=== PATIENT | male | born 1935 | race Caucasian/White ===

== ENCOUNTER 2019-05-22 13:05 | Emergency (ER) | payer MEDICARE ==
[~2019-05-22] VITALS: Ht 182.9 cm; Wt 99.8 kg
[~2019-05-22 13:05] MED LIST: ASPI81CH PO; ASPI81EC PO; BETA1 PO; BILBERRY PO; CALCA500CH PO; CALCIUM PO; CHOL10002 PO; CLON2; CLON2 PO; CLOP75 PO; CYAN1000 PO; DIVA250EC PO; DOC250 PO; DOCCAL240 PO; EYE MULTIVITAMIN PO; FISH OIL 1,0001 EACH PO; FISH1000 PO; Fludrocortison0.1 MG PO; GABA300 PO; HYDACE10B PO; HYDACE5 PO; HYDR1TAB94 PO; LUBRICANT EYE15 ML BOTHEYES; MELA3 PO; METCAR500 PO; METCAR750 PO; MIDO5 PO; MORP15ER; NAPR250 PO; NAPR500 PO; OMEP20ER PO; Refresh Celluv1 EACH OP; SENN187 PO; SERT100 PO; SERT50 PO; TAMS.4ER PO; TUMS500 MG PO; Vitamin D2000 UNIT PO; [UNRECOGNIZED DRUG - OTHER] PO
[2019-05-22] MEDS ORDERED: CYCL10 PO (13:17)
== END 2019-05-22 15:20 | disposition home or self-care (01) ==
LOC: ER 13:05
DX: R51 Headache (principal); M54.2 Cervicalgia; Z88.8 Allergy status to other drugs, medicaments and biological substances; Z79.899 Other long term (current) drug therapy; I50.9 Heart failure, unspecified; Z86.73 Personal history of transient ischemic attack (TIA), and cerebral infarction without residual deficits; F43.10 Post-traumatic stress disorder, unspecified; F32.9 Major depressive disorder, single episode, unspecified; F41.9 Anxiety disorder, unspecified; Z87.891 Personal history of nicotine dependence
CPT/HCPCS: 70450; 99284-25

== ENCOUNTER 2020-10-17 14:01 | Emergency (ER) | payer OTHER ==
[~2020-10-17] VITALS: Ht 182.9 cm; Wt 97.5 kg
[~2020-10-17 14:01] MED LIST changes: +CYCL10 PO
[2020-10-17] MEDS ORDERED: CLIN150 PO (14:51)
== END 2020-10-17 15:21 | disposition home or self-care (01) ==
LOC: ER 14:01
DX: K13.0 Diseases of lips (principal); I50.9 Heart failure, unspecified; Z23 Encounter for immunization; Z79.899 Other long term (current) drug therapy; Z88.8 Allergy status to other drugs, medicaments and biological substances; Z86.73 Personal history of transient ischemic attack (TIA), and cerebral infarction without residual deficits; Z87.891 Personal history of nicotine dependence
CPT/HCPCS: 10060; 90471; 90714; 99283-25; A9270

== ENCOUNTER 2021-01-09 18:43 | Inpatient (IN) | payer OTHER ==
[~2021-01-09] VITALS: Ht 177.8 cm; Wt 93.4 kg
[~2021-01-09 18:43] MED LIST changes: +CLIN150 PO
[2021-01-09 18:58] LABS: BASOPHILS ABSOLUTE AUTO 0.04 K/mm3 (0.00-0.23); BASOPHILS PERCENT AUTO 1 % (0-2); EOSINOPHILS PERCENT AUTO 2 % (0-6); Hematocrit 43.1 % (37.0-53.0); Hemoglobin 14.1 g/dL (13.5-17.5); IMMATURE GRAN ABSOLUTE AUTO 0.01 K/mm3 (0.00-0.10); IMMATURE GRAN PERCENT AUTO 0 % (0-1); LYMPHOCYTES ABSOLUTE AUTO 1.08 K/mm3 (0.84-5.20); LYMPHOCYTES PERCENT AUTO 17 % (21-46); MONOCYTES ABSOLUTE AUTO 0.67 K/mm3 (0.16-1.47); MONOCYTES PERCENT AUTO 10 % (4-13); Mean Corpuscular HGB 30.5 pg (26.0-34.0); Mean Corpuscular HGB Conc 32.7 g/dL (31.5-36.5); Mean Corpuscular Volume 93 fL (80-100); Mean Platelet Volume 11.1 fL (9.1-12.4); NEUTROPHILS PERCENT AUTO 71 % (41-73); Platelet Count 168 K/mm3 (150-400); RDW Coefficient Variation 13.1 % (11.7-14.2); Red Blood Cell Count 4.63 M/mm3 (4.30-5.90)
[2021-01-09 19:21] LABS: Alanine Aminotransfer (ALT/SGP 22 U/L (12-78); Albumin, Blood 4.4 g/dL (3.4-5.0); Alk Phos 72 U/L (50-136); Anion Gap 4 mmol/L (6-16); Aspartate Aminotrans (AST/SGOT 17 U/L (12-37); Bilirubin, Total 0.6 mg/dL (0.1-1.0); Blood Urea Nitrogen 12 mg/dL (8-24); Bun/Creatinine Ratio 9.7 (12.0-20.0); CO2, Blood 27 mmol/L (21-32); Calcium, Blood 9.3 mg/dL (8.5-10.1); Chloride, Blood 106 mmol/L (98-108); Creatinine, Blood 1.24 mg/dL (0.60-1.20); Globulin, Blood 4.3 g/dL (2.2-4.0); Glomerular Filtration Rate 59 (60-); Glucose, Blood 107 mg/dL (70-99); Potassium, Blood 3.9 mmol/L (3.5-5.5); Sodium, Blood 137 mmol/L (136-145); Total Protein, Blood 8.7 g/dL (6.4-8.2); Troponin I <0.015 ng/mL (0.000-0.040)
[2021-01-09 21:54] LABS: International Normalized Ratio 1.06; Prothrombin Time Results 11.4 Sec (9.7-11.5)
--- NOTE | 2021-01-10 | NUR ---
ASSUMED CARE PT ARRIVED 0 AND IS ALERT AND ORIENTED. PT HAS GARBLED SPEECH. RIGHT ARM/LEG NUMBNESS AND WEAKNESS. NO FACE DROOP. HEPARIN INFUSING AT TIME. CALL LIGHT PLACED AT LEFT SIDE. WILL CONTINUE TO MONITOR.
--- NOTE | 2021-01-10 05:19 | NUR ---
SHIFT SUMMARY PT ARRIVED AT APPROX 2350. HE IS ALERT. DENIES CHEST PAIN OR SOB. PT HAS RIGHT SIDED WEAKNES. RIGHT ARM IS NUMB WITH WEAK WASHCLOTH FOLDER. RIGHT LEG IS WEAK AND NUMB. NO FACIAL DROOP, NO TONGUE DEVIATION. WHEN ASKED IF PT KNEW WHERE HE WAS HE DENIED KNOWING. PT'S SPEECH HAS BECOME MORE GARBLED AND UNABLE TO UNDERSTAND. PT'S WHILE PT WAS IN THE ER. ED NURSE STATED THAT PT'S FAMILY WILL BE FLYING IN FROM [place] TO ARRANGE FURTHER CARE FOR PATIENT.
[2021-01-10 06:42] LABS: BASOPHILS ABSOLUTE AUTO 0.03 K/mm3 (0.00-0.23); BASOPHILS PERCENT AUTO 1 % (0-2); EOSINOPHILS ABSOLUTE AUTO 0.12 K/mm3 (0.00-0.68); EOSINOPHILS PERCENT AUTO 2 % (0-6); Hematocrit 35.7 % (37.0-53.0); Hemoglobin 12.1 g/dL (13.5-17.5); IMMATURE GRAN ABSOLUTE AUTO 0.01 K/mm3 (0.00-0.10); IMMATURE GRAN PERCENT AUTO 0 % (0-1); LYMPHOCYTES ABSOLUTE AUTO 0.91 K/mm3 (0.84-5.20); LYMPHOCYTES PERCENT AUTO 18 % (21-46); MONOCYTES ABSOLUTE AUTO 0.48 K/mm3 (0.16-1.47); MONOCYTES PERCENT AUTO 9 % (4-13); Mean Corpuscular HGB 30.9 pg (26.0-34.0); Mean Corpuscular HGB Conc 33.9 g/dL (31.5-36.5); Mean Corpuscular Volume 91 fL (80-100); Mean Platelet Volume 11.4 fL (9.1-12.4); NEUTROPHILS ABSOLUTE AUTO 3.54 K/mm3 (1.96-9.15); NEUTROPHILS PERCENT AUTO 70 % (41-73); Platelet Count 155 K/mm3 (150-400); RDW Coefficient Variation 13.2 % (11.7-14.2); RDW Standard Deviation 42.5 fL (35.1-46.3); Red Blood Cell Count 3.91 M/mm3 (4.30-5.90); White Blood Cell Count 5.09 K/mm3 (4.00-11.30)
[2021-01-10 07:06] LABS: Alanine Aminotransfer (ALT/SGP 16 U/L (12-78); Albumin, Blood 3.4 g/dL (3.4-5.0); Albumin/Globulin Ratio 1.1 (0.8-1.8); Alk Phos 52 U/L (50-136); Anion Gap 6 mmol/L (6-16); Aspartate Aminotrans (AST/SGOT 12 U/L (12-37); Bilirubin, Total 0.7 mg/dL (0.1-1.0); Blood Urea Nitrogen 10 mg/dL (8-24); Bun/Creatinine Ratio 11.3 (12.0-20.0); CO2, Blood 26 mmol/L (21-32); Calcium, Blood 8.1 mg/dL (8.5-10.1); Chloride, Blood 106 mmol/L (98-108); Creatinine, Blood 0.88 mg/dL (0.60-1.20); Globulin, Blood 3.2 g/dL (2.2-4.0); Glomerular Filtration Rate >60 (60-); Glucose, Blood 92 mg/dL (70-99); Potassium, Blood 3.7 mmol/L (3.5-5.5); Sodium, Blood 138 mmol/L (136-145); Total Protein, Blood 6.6 g/dL (6.4-8.2)
--- NOTE | 2021-01-10 07:12 | NUR ---
HOLD HEPARIN FOR 1 HOUR PER PHARMACY NOW AT 0711.
--- NOTE | 2021-01-10 08:09 | NUR ---
RESTARTED HEPARIN AT 11 UNITS/KG/HR AND 20.7 ML/HR AFTER HOLDING FOR 1 HOUR PER PHARMACY.
--- NOTE | 2021-01-10 12:16 | NUR ---
pt is service connected requested his advance directive from [facility]
[2021-01-10 13:16] LABS: Source, Urine Clean Catch
[2021-01-10 13:20] LABS: Appearance, Urine Clear (Clear); Bilirubin, Urine Neg (Neg); Blood, Urine 1+ (Neg); Color, Urine Yellow (P-Yellow); Glucose Qualitative, Urine Neg (Neg); Ketones, Urine 3+ (Neg); Leukocyte Esterase, Urine Neg (Neg); Nitrite, Urine Pos (Neg); Protein, Urine 2+ (Neg); Urobilinogen, Urine 1+ (Normal)
[2021-01-10 13:33] LABS: Bacteria Mod /hpf; Calcium Oxalate Crystals Rare /hpf; Red Blood Cells, Urine Rare /hpf (0-2); Squamous Epithelial Cells Not Seen /hpf (Few); White Blood Cells, Urine 0-2 /hpf (0-5)
--- NOTE | 2021-01-10 18:14 | NUR ---
SHIFT SUMMARY PT ALERT THROUGHOUT SHIFT. ORIENTED TO PERSON, PLACE, AND EVENT. RIGHT SIDED WEAKNESS IMPROVED THROUGOUT SHIFT. TWO GRANDCHILDREN VISITED FROM [place]. HEPARIN DRIP RUNNING. WORKED WITH PHYSICAL THERAPY TODAY AND DANGLED AT EDGE OF BED. TOLERATING SIPS OF WATER. CONTINENT OF URINE. MEDICAL STATUS.
--- NOTE | 2021-01-10 22:34 | NUR ---
PATIENT AWAKE AND REPOSITIONING SELF IN BED FOR COMFORT. PATIENT MOVING RIGHT ARM AND LEG, WITH FINE MOTOR SKILLS IN RIGHT HAND DIFFICULTY. SPEECH CONTINUES TO BE SLURRED, BUT PATIENT A&O X3, VERBALIZED THAT HE IS LOOKING FORWARD TO MOVING BACK TO [place] TO BE CLOSER TO 2 OF HIS SONS. TALKING OPENLY ABOUT LOOSING HIS WHO .
--- NOTE | 2021-01-11 00:18 | NUR ---
PATIENT SLEEPING WITH CPAP IN PLACE. AWAKENS TO VERBAL STIMULI, FOLLOWING SIMPLE DIRECTIONS, BUT NOT ANSWERING QUESTIONS. RIGHT ARM AND LEG CONTINUE WITH GROSSE MOVEMENT BUT NO FINE MOTOR SKILLS. WHEN SPEAKING SPEECH VERY DIFFICULT TO UNDERSTAND, NODING YES AND NO TO QUESTIONS.
[2021-01-11 04:11] LABS: BASOPHILS ABSOLUTE AUTO 0.03 K/mm3 (0.00-0.23); BASOPHILS PERCENT AUTO 1 % (0-2); EOSINOPHILS ABSOLUTE AUTO 0.09 K/mm3 (0.00-0.68); EOSINOPHILS PERCENT AUTO 2 % (0-6); Hematocrit 36.3 % (37.0-53.0); Hemoglobin 12.2 g/dL (13.5-17.5); IMMATURE GRAN ABSOLUTE AUTO 0.01 K/mm3 (0.00-0.10); IMMATURE GRAN PERCENT AUTO 0 % (0-1); LYMPHOCYTES ABSOLUTE AUTO 0.95 K/mm3 (0.84-5.20); LYMPHOCYTES PERCENT AUTO 18 % (21-46); MONOCYTES ABSOLUTE AUTO 0.51 K/mm3 (0.16-1.47); MONOCYTES PERCENT AUTO 10 % (4-13); Mean Corpuscular HGB 30.3 pg (26.0-34.0); Mean Corpuscular HGB Conc 33.6 g/dL (31.5-36.5); Mean Corpuscular Volume 90 fL (80-100); Mean Platelet Volume 11.2 fL (9.1-12.4); NEUTROPHILS ABSOLUTE AUTO 3.63 K/mm3 (1.96-9.15); NEUTROPHILS PERCENT AUTO 70 % (41-73); Platelet Count 156 K/mm3 (150-400); RDW Coefficient Variation 12.8 % (11.7-14.2); RDW Standard Deviation 41.2 fL (35.1-46.3); Red Blood Cell Count 4.02 M/mm3 (4.30-5.90); White Blood Cell Count 5.22 K/mm3 (4.00-11.30)
[2021-01-11 04:31] LABS: Albumin, Blood 3.5 g/dL (3.4-5.0); Anion Gap 8 mmol/L (6-16); Blood Urea Nitrogen 9 mg/dL (8-24); Bun/Creatinine Ratio 10.9 (12.0-20.0); CO2, Blood 25 mmol/L (21-32); Calcium, Blood 8.3 mg/dL (8.5-10.1); Chloride, Blood 105 mmol/L (98-108); Creatinine, Blood 0.83 mg/dL (0.60-1.20); Glomerular Filtration Rate >60 (60-); Glucose, Blood 77 mg/dL (70-99); Phosphorus, Blood 2.5 mg/dL (2.5-4.9); Potassium, Blood 3.8 mmol/L (3.5-5.5); Sodium, Blood 138 mmol/L (136-145)
--- NOTE | 2021-01-11 05:43 | NUR ---
SUMMARY PATIENT SLEEPING OFF AND ON T/O NIGHT. AT MIDNIGHT PATIENT HAD DIFFICULTY WAKING AND SPEECH WAS VERY GARBLED. AT 0400 PATIENT AWAKE AND BACK TO EASY TO UNDERSTAND VOICE, DESPITE SLIGHT SLURRED SPEECH. GROSS MOVEMENT TO RIGHT ARM AND LEG, CONTINUES TO NOT HAVE FINE MOTOR SKILLS, ASSISTING WITH REPOSITIONING IN BED. PATIENT VERBALIZED MISSING HIS , AND THAT HE IS LOOKING FORWARD TO MOVING BACK TO [place] WITH HIS OTHER 2 SONS.
--- NOTE | 2021-01-11 09:25 | NUR ---
AM NOTE ASSUMED CARE OF PATIENT AT APPROX 0700. PT RESTING IN BED. REPOSITIONS Q2. PT A&Ox4; CALM AND COOPERATIVE WITH CARE. RIGHT SIDED WEAKNESS NOTED, MINIMAL FINE MOTOR RESPONSE NOTED, ABLE TO TOUCH HIS FACE NEAR HIS NOSE WHEN ASKED TO TOUCH HIS NOSE; DELAYED CELLOPHANER NOTED. PT DENEIS DOUBLE OR BLURRED VISION OR OTHER VISION IMPAIRMENT, HOWEVER, PT UNABLE TO SEE THE TRASH CAN AT THE END OF THE BED. PER TELE HR AFIB IN 70'S, BP ELEVATED BUT STABLE. BS NORMORACTIVE x4 QUAD. ORAL CARE COMPLETED WITH SUCTIONS SET UP. SPEECH THERAPY AT BEDSIDE. OTHER VSS. NO OTHER ACUTE CHAGNES. WILL CONTINUE TO MONITOR.
--- NOTE | 2021-01-11 11:36 | NUR ---
NOTIFIED DR HIGHTOWER OF ORTHSTATIC VS; UNABLE TO STAND LONG ENOUGH TO COMPLETED FULL SET. NO NEW ORDERS AT THIS TIME.
--- NOTE | 2021-01-11 15:07 | NUR ---
Pt resting in bed upon arrival. Offered therapeutic listening as Pt moarns the loss of his . Pt reports frustration and states "I was supposed to be the first to go". Continued therapeutic listening and answered questions. Offered condolences and validated concerns. Discussed his wishes for life sustaining treatment with Pt reporting that he does not want CPR or intubation. Pt would like to be a DNR. Pt is A&O and this RN is confident in Pt's level of understanding. Pt is agreeable for this RN to call his son Saman and relay his wishes. No other concerns reported at this time. Spoke with Primary RN Serenity and discussed case. Called and spoke with Pt's son Saman. Provided update and relayed Pt's wishes for DNR. Saman appears agreeable with Pt's wishes. Answered questions and offered therapeutic listening. Called and spoke with Dr Hernandez. Placed order for Pt's code status to be DNR per V/O from Dr Hernandez. Palliative Care will remain available.
--- NOTE | 2021-01-11 15:59 | NUR ---
TRANSFER NOTE NO ACUTE CHANGES NOTED DURING SHIFT. VSS. ORTHO BP NEGATIVE. REPROT GIVEN TO RN ASSUMING CARE OF PATIENT. NOTIFIED PT GRANDDAUGHTER OF TRANSFER TO ROOM 324.
--- NOTE | 2021-01-11 16:16 | NUR ---
Patient is rescently transferred to medical floor. I sat with patient the day his (two days ago) just prior to his CVA. Patient tells me about the events that happened as the stroke came on and how things have been going since. I provide therapeutic listening, grief support and a calming presence. Patient responds well and shows signs of being comforted. I will continue to remain available to patient and family.
--- NOTE | 2021-01-11 17:07 | NUR ---
PT TRANSFERED TO ROOM FROM PCU. NO DISTRESS NOTED AT THIS TIME. PT AO AND COOPERATIVE OF CARE. PT VERBALIZED WANTING TO MOVE TO [place] SOON HE CAN. PT HAS FAMILY PRESENT AND CALL LIGHT IS WITHIN REACH. PT DENIES PAIN AT THIS TIME WILL CONTINUE TO MONITOR.
--- NOTE | 2021-01-12 06:34 | NUR ---
SHIFT SUMMARY PATIENT ALERT AND ORIENTED. HAD NO COMPLAINTS OF PAIN OR SHORTNESS OF BREATH. SLEPT WELL OVERNIGHT AND HAD MINIMAL NEEDS. NO ACUTE ISSUES NOTED OVERNIGHT. IVS PATENT AND FLUSHED. BED IN LOWEST POSITION WITH WHEELS LOCKED AND ALARM ON. CALL LIGHT WTIHIN REACH. REPORT GIVEN TO ONCOMING RN.
[2021-01-12 08:04] LABS: BASOPHILS ABSOLUTE AUTO 0.03 K/mm3 (0.00-0.23); BASOPHILS PERCENT AUTO 0 % (0-2); EOSINOPHILS ABSOLUTE AUTO 0.06 K/mm3 (0.00-0.68); EOSINOPHILS PERCENT AUTO 1 % (0-6); Hematocrit 36.7 % (37.0-53.0); Hemoglobin 12.4 g/dL (13.5-17.5); IMMATURE GRAN ABSOLUTE AUTO 0.02 K/mm3 (0.00-0.10); IMMATURE GRAN PERCENT AUTO 0 % (0-1); LYMPHOCYTES ABSOLUTE AUTO 0.69 K/mm3 (0.84-5.20); LYMPHOCYTES PERCENT AUTO 10 % (21-46); MONOCYTES ABSOLUTE AUTO 0.59 K/mm3 (0.16-1.47); MONOCYTES PERCENT AUTO 9 % (4-13); Mean Corpuscular HGB 30.9 pg (26.0-34.0); Mean Corpuscular HGB Conc 33.8 g/dL (31.5-36.5); Mean Corpuscular Volume 92 fL (80-100); Mean Platelet Volume 11.2 fL (9.1-12.4); NEUTROPHILS ABSOLUTE AUTO 5.51 K/mm3 (1.96-9.15); NEUTROPHILS PERCENT AUTO 80 % (41-73); Platelet Count 142 K/mm3 (150-400); RDW Coefficient Variation 12.8 % (11.7-14.2); RDW Standard Deviation 42.1 fL (35.1-46.3); Red Blood Cell Count 4.01 M/mm3 (4.30-5.90)
[2021-01-12 08:37] LABS: Albumin, Blood 3.2 g/dL (3.4-5.0); Anion Gap 6 mmol/L (6-16); Blood Urea Nitrogen 11 mg/dL (8-24); Bun/Creatinine Ratio 13.2 (12.0-20.0); CO2, Blood 26 mmol/L (21-32); Calcium, Blood 8.2 mg/dL (8.5-10.1); Chloride, Blood 105 mmol/L (98-108); Creatinine, Blood 0.83 mg/dL (0.60-1.20); Glomerular Filtration Rate >60 (60-); Glucose, Blood 81 mg/dL (70-99); Phosphorus, Blood 2.2 mg/dL (2.5-4.9); Potassium, Blood 3.4 mmol/L (3.5-5.5); Sodium, Blood 137 mmol/L (136-145)
--- NOTE | 2021-01-12 15:19 | NUR ---
PT WAS MOVED WITH PERSONAL BELONGINGS TO ROOM 305 THERE SEEMS TO BE TELEMETRY ISSUES FOR ROOM 324. FAMILY MEMEBERS WERE PRESENT AT MOVE. PT TOLERATED CHANGE OF ROOMS WELL.
--- NOTE | 2021-01-12 15:50 | NUR ---
Pal Care visit - F/U visit made to pt and family to assist with POLST completion per their request. Pt's POLST is in agreement with his stated wishes for DNR and we further discussed the level of medical intervention he would want in the future and also reviewed noninvasive respiratory support like O2, CPAP and BIPAP vs ventilatory support with intubation. Pt does not want intubation or any life prolonging measures if recovery is not anticipated. He will allow his son and grandchildren to decide if short term intubation is appropriate for a given situation if he is unable to speak for himself. He and his gdau, Anita and gson-Carter all agree they would prefer DNR and limited treatment chosen on his POLST at this time. Pt denies pain but does express pain and grief over the loss of his of 65 years in our ICU on Monday night. Family expressed gratitude that pt was here when he suffered his stroke and for all the care/positive encounters they have experienced with our staff and providers. Both tiffany are are in the medical field and stated several times how well they have all been treated and tended to. They are working with CM on transfer to [facility] when a bed is available for rehab services/SNF. Time spent listening and supporting pt. Ventilated Rib Fitter visit offered and declined at this time. FAmily is planning to move pt to [facility] with them and their dad once he is done with rehab. GABRIEL left on chart for Dr hebert. called with report and request for signature when making rounds next. Pt and family will need original and copies to take with for new PCP when found. Pt only has [facility] and unsure who his PCP is now. Will sent GABRIEL to medical records for scanning into EMR once signed. F/U visit planned with pt/family tomorrow.
--- NOTE | 2021-01-12 17:31 | NUR ---
PT AO AND COOPERATIVE OF CARE. PT DID VERY WELL WITH PHYSICAL THERAPY AND WAS ABLE TO BE A TWO PERSON TO BEDSIDE COMMODE. PT DID GET TIRED VERY QUICKLY AND WAS A MUCH HEAVIER TRANSFER BACK TO BED. R SIDE STILL STRONGLY AFFECTED BY THE STROKE. HIS R ARM AND HAND DO NOT COOPERATE WELL WITH GROSS MOVEMENT WHEN HE MOVES.PT HAD MULTIPLE LOOSE STOOL TODAY AND DR MILLER WAS NOTIFIED. DR MILLER ADDED MEDIATION TO ADDRESS THIS. PT HAS FAMILY AT BEDSIDE AT THIS TIME AND CALL LIGHT IS WITHIN REACH WILL CONTINUE TO MONITOR.
[2021-01-13 04:49] LABS: BASOPHILS ABSOLUTE AUTO 0.03 K/mm3 (0.00-0.23); BASOPHILS PERCENT AUTO 1 % (0-2); EOSINOPHILS ABSOLUTE AUTO 0.14 K/mm3 (0.00-0.68); EOSINOPHILS PERCENT AUTO 2 % (0-6); Hematocrit 36.6 % (37.0-53.0); Hemoglobin 12.5 g/dL (13.5-17.5); IMMATURE GRAN ABSOLUTE AUTO 0.01 K/mm3 (0.00-0.10); IMMATURE GRAN PERCENT AUTO 0 % (0-1); LYMPHOCYTES ABSOLUTE AUTO 1.06 K/mm3 (0.84-5.20); LYMPHOCYTES PERCENT AUTO 16 % (21-46); MONOCYTES ABSOLUTE AUTO 0.55 K/mm3 (0.16-1.47); MONOCYTES PERCENT AUTO 9 % (4-13); Mean Corpuscular HGB Conc 34.2 g/dL (31.5-36.5); Mean Corpuscular Volume 88 fL (80-100); Mean Platelet Volume 11.2 fL (9.1-12.4); NEUTROPHILS ABSOLUTE AUTO 4.66 K/mm3 (1.96-9.15); NEUTROPHILS PERCENT AUTO 72 % (41-73); Platelet Count 145 K/mm3 (150-400); RDW Standard Deviation 40.8 fL (35.1-46.3); Red Blood Cell Count 4.17 M/mm3 (4.30-5.90); White Blood Cell Count 6.45 K/mm3 (4.00-11.30)
[2021-01-13 05:05] LABS: Albumin, Blood 3.4 g/dL (3.4-5.0); Anion Gap 6 mmol/L (6-16); Blood Urea Nitrogen 9 mg/dL (8-24); Bun/Creatinine Ratio 10.8 (12.0-20.0); CO2, Blood 26 mmol/L (21-32); Calcium, Blood 8.4 mg/dL (8.5-10.1); Chloride, Blood 107 mmol/L (98-108); Creatinine, Blood 0.83 mg/dL (0.60-1.20); Glomerular Filtration Rate >60 (60-); Glucose, Blood 94 mg/dL (70-99); Phosphorus, Blood 3.1 mg/dL (2.5-4.9); Potassium, Blood 3.3 mmol/L (3.5-5.5); Sodium, Blood 139 mmol/L (136-145)
--- NOTE | 2021-01-13 06:14 | NUR ---
COUNSELOR/ART THERAPIST SUMMARY PT AAOX4 AND PLEASANT. DENIES PAIN, SOB, N/V. REMAINS ON HEPARIN DRIP PER PHARMACY MANAGEMENT. PT HAS BEEN AFIB IN THE 60-70'S ON TELE MOST OF THE NIGHT, HOWEVER [place] APPRENTICE REPORTED THIS AM THAT PT HAD A SINGLE R ON T PVC AND IS NOW BACK TO CONTROLLED AFIB. PT ASYMPTOMATIC AT THAT TIME AND HAS BEEN SLEEPING. OTHER VSS, WILL CONTINUE TO MONITOR.
--- NOTE | 2021-01-13 10:30 | NUR ---
Pal Care visit - Pt working with OT on first attempt. Pt was dyspnic with therapy and exercises and needed rest break for catching breath. Returned just as Drs were finished rounding. Pt reports he is going to [facility] for SNF stay this afternoon. Pt's grandchildren also arrived while I was visiting and I was able to give them the original POLST, fully completed and two extra copies. POLST sent to our medical records for scanning into EMR and a copy placed on pt's chart. Pt brightens with grandchildren present. He is able to report to them how his therapy visit is and that he is being transferred sometime this afternoon. Grandchildren and pt again express gratitude for the care their grandparents received here.
--- NOTE | 2021-01-13 14:23 | NUR ---
Spiritual care visit conducted. Patient talks at length about his spouse who a few days ago. He speaks about them being high school sweethearts, about her personality, her talents and about all that she means to him. Onel then explains about his middle son asking Onel to come and live with him in [place] after he spends some time in a rehabilitation center. He shares his concerns about how his sons will work out the dividing of his ranch three ways. I normalize patient's bereavement process, and provide therapeutic listening, grief support and prayer. Patient responds well and shows signs of being comforted and having increased hope. Spiritual care will continue to remain available.
--- NOTE | 2021-01-13 18:26 | NUR ---
SHIFT SUMMARY PT HAS HAD NO COMPLAINTS THIS SHIFT. PT WORKED WITH PHYSICAL AND OCCUPATIONAL THERAPY THIS SHIFT. PT CONTINUES TO NOT HAVE MUCH APPETITE. THIS RN ENCOURAGED PT TO EAT MORE. PLANS FOR PT TO POSSIBLY BE DISCHARGED TOMORROW TO SNF. NO ACUTE CHANGES AT THIS TIME. WILL CONTINUE TO MONITOR AND REPORT TO ONCOMING RN. CALL LIGHT IN REACH.
[2021-01-14 05:03] LABS: Anion Gap 3 mmol/L (6-16); Blood Urea Nitrogen 9 mg/dL (8-24); Bun/Creatinine Ratio 9.6 (12.0-20.0); CO2, Blood 29 mmol/L (21-32); Calcium, Blood 8.5 mg/dL (8.5-10.1); Chloride, Blood 106 mmol/L (98-108); Creatinine, Blood 0.94 mg/dL (0.60-1.20); Glomerular Filtration Rate >60 (60-); Glucose, Blood 90 mg/dL (70-99); Potassium, Blood 3.6 mmol/L (3.5-5.5); Sodium, Blood 138 mmol/L (136-145)
--- NOTE | 2021-01-14 05:37 | NUR ---
GRINDING WHEEL FACER SUMMARY NO ACUTE CHANGES. PT AAOX4 AND PLEASANT. STILL SOME MILD WEAKNESS OF R ARM BUT DOES SEEM IMPROVED FROM YESTERDAY. DENIES PAIN, SOB, N/V. PT POSSIBLE DC TO [facility] LATER TODAY. VSS, WILL CONTINUE TO MONITOR.
[2021-01-14 14:24] LABS: SARS-Cov-2 (COVID-19) PCR, MMC NEGATIVE (NEGATIVE)
--- NOTE | 2021-01-14 18:25 | NUR ---
SHIFT SUMMARY PT HAS HAD NO COMPLAINTS. CONTINUES TO BE WEAK ON RIGHT SIDE WITH N/T IN RIGHT HAND AND FOOT. PT CONTINUES TO NOT HAVE MUCH OF AN APPEITITE. NO C/O PAIN THIS SHIFT. PT UP IN CHAIR FOR DINNER, USING THE PETRA LIFT. PT WAS ABLE TO HELP STAND HIMSELF USING HIS LEFT LEG AND PULLED SELF UP WITH LEFT ARM. NO CHANGES THIS SHIFT. PLANS FOR PT TO GO TO SNF TOMORROW. CALL LIGHT IN REACH. WILL CONTINUE TO MONITOR AND REPORT TO ONCOMING RN.
--- NOTE | 2021-01-15 05:02 | NUR ---
BODY ROLLING MACHINE TENDER SUMMARY NO ACUTE CHANGES THIS SHIFT. PT AAOX4 AND PLEASANT. NO COMPLAINTS OF PAIN, SOB, N/V. STRENGTH IN R HAND SEEMS IMPROVED. PT MOST LIKELY TO DC TO [facility] LATER TODAY AND THEN EVENTUALLY MOVE DOWN TO [place] TO LIVE WITH HIS SON AFTER HIS REHAB. VSS, WILL CONTINUE TO MONITOR.
[2021-01-15] MEDS ORDERED: ATOR40TA PO (11:13)
[2021-01-15] MEDS ORDERED: ELIQUIS5 MG PO (11:13)
[2021-01-15] MEDS ORDERED: Prinivil10 MG PO (11:14)
--- NOTE | 2021-01-15 15:36 | NUR ---
PT DISCHARGED FROM THE UNIT. IVS REMOVED. REPORT CALLED TO [facility]. DISCHARGE PACKET SENT WITH TRANSPORT. PT FAMILY TOOK PT BELONGINGS.
== END 2021-01-15 15:24 | DRG 64 ==
LOC: ER 18:43 → MEDS 22:10 → PCU 22:10 → MEDS 01-11 15:43
PROVIDERS: Emergency Medicine; Family Medicine; Internal Medicine; ADMIT Internal Medicine
DX: I63.532 Cerebral infarction due to unspecified occlusion or stenosis of left posterior cerebral artery (principal); I63.22 Cerebral infarction due to unspecified occlusion or stenosis of basilar artery; G81.91 Hemiplegia, unspecified affecting right dominant side; I50.32 Chronic diastolic (congestive) heart failure; N17.9 Acute kidney failure, unspecified; I48.20 Chronic atrial fibrillation, unspecified; G93.49 Other encephalopathy; R47.81 Slurred speech; Z66 Do not resuscitate; M19.90 Unspecified osteoarthritis, unspecified site; E87.6 Hypokalemia; Z20.822 Contact with and (suspected) exposure to COVID-19; G89.29 Other chronic pain; M54.9 Dorsalgia, unspecified; G47.33 Obstructive sleep apnea (adult) (pediatric); N40.0 Benign prostatic hyperplasia without lower urinary tract symptoms; H35.30 Unspecified macular degeneration; I48.91 Unspecified atrial fibrillation; R29.706 NIHSS score 6; F43.10 Post-traumatic stress disorder, unspecified; F41.9 Anxiety disorder, unspecified; F43.21 Adjustment disorder with depressed mood; F32.9 Major depressive disorder, single episode, unspecified; Z96.651 Presence of right artificial knee joint; Z90.49 Acquired absence of other specified parts of digestive tract; Z87.442 Personal history of urinary calculi; Z88.5 Allergy status to narcotic agent; Z88.8 Allergy status to other drugs, medicaments and biological substances; Z98.890 Other specified postprocedural states
CPT/HCPCS: 36415; 70450; 70496; 70498; 80048; 80053; 80069; 81001; 82947; 84484; 85025; 85610; 85730; 87077; 87086; 87186; 92507; 92523; 92526; 92610; 93005; 93010; 93306; 94660; 94762; 96365-59; 97110; 97112; 97162; 97167; 97530; 97535; 99285-25; A9270; J1644; J7030; J7060; Q9967; U0004